=== PATIENT | female | born 1985 | race Caucasian/White ===

== ENCOUNTER 2023-09-07 11:07 | Emergency (ER) | payer SELFPAY ==
[2023-09-07 12:06] VITALS: BP 119/76; PULSE 70; RESP 16; TEMP 36; O2SAT 99; BMI 46.7
--- NOTE | 2023-09-07 12:09 | ED.UPPEXIN ---
HPI - Extremity Injury (Upper) General Chief Complaint: Extremity Injury, Upper Stated Complaint: l shoulder pain Time Seen by Provider: 09/07/23 12:56 Source: patient Mode of arrival: ambulatory Limitations: no limitations History of Present Illness HPI narrative: Patient is a 38 year old assigned female at with no reported medical history presenting to the emergency department today with left shoulder pain. Patient states that 2 months ago she was changing the light bulb above her bed when she planted her hand against the ceiling and fell forward, feeling a pop in her left shoulder. Patient denies any dizziness, lightheadedness, abdominal pain, nausea, vomiting, fever, chills, blurry vision, double vision, loss of vision, chest pain, difficulty breathing, shortness of breath, back pain, night sweats, pain with urination, increased urinary frequency, increased urinary urgency, blood in her urine or stool, syncope or a near syncopal episode, bowel incontinence, bladder incontinence, bowel retention, bladder retention, or any other complaints at this time. MD complaint: injury to: left and shoulder Onset (ago): month(s) (2) Other injuries: none Place: home Severity: mild Severity scale (1-10): 3 Associated symptoms: denies other symptoms Related Data Previous Rx's Medication Instructions Recorded prednisone 20 mg tablet 20 mg PO DAILY 7 days #7 tabs 09/07/23 Allergies Allergy/AdvReac Type Severity Reaction Status Date / Time Penicillin Allergy Unknown shortness Uncoded 09/07/23 12:06 of breath Tramadol Allergy Unknown nausea and Uncoded 09/07/23 12:06 vomiting Review of Systems Constitutional: Constitutional: Reports no additional constitutional complaints, Denies chills, Denies fever(s) and Denies night sweats Eyes: Eyes: Reports no additional eye complaints, Denies blurry vision, Denies change in vision, Denies diplopia, Denies eye discharge, Denies loss of vision and Denies eye pain ENT: Denies dizziness Cardiovascular: Cardiovascular: Reports no additional cardiovascular complaints, Denies chest pain, Denies lightheadedness, Denies Loss of Consciousness and Denies dyspnea Respiratory: Respiratory: Reports no additional respiratory complaints and Denies dyspnea Gastrointestinal: Gastrointestinal: Reports no additional gastrointestinal complaints, Denies abdominal pain, Denies melena, Denies hematochezia, Denies change in bowel habits and Denies change in stool character Genitourinary: Genitourinary: Denies hematuria, Denies urinary frequency, Denies dysuria, Denies urinary incontinence, Denies urinary hesitancy and Denies urinary urgency Musculoskeletal: Musculoskeletal: Reports no additional musculoskeletal complaints, Denies numbness and Denies tingling Comments: left shoulder pain Neurologic: Denies dizziness, Denies loss of vision, Denies numbness and Denies tingling Psychiatric: Psychiatric: Reports no additional psychiatric complaints Endocrine: Endocrine: Reports no additional endocrine complaints Hematologic/Lymphatic: Hematologic/Lymphatic: Reports no additional hematologic/lymphatic complaints Allergic/Immunologic: Allergic/Immunologic: Reports no additional allergic/immunologic complaints PMFSH Past Medical History Attestation statement: The following information was validated with the patient. Source: old records reviewed and nursing notes reviewed Onset Date is defined in the Problem List Problems that require an onset date and time if occurred within 24 hrs of arrival to the ED Aortic Dissection and Rupture; Neurologic impairment; Cardiopulmonary Arrest; Endotracheal Intubation; Insertion or Replacement of Mechanical Circulatory Assist Device Social History Social History Advance Directives: No Advance Directives Information Provided: Yes Physical Exam Vital Signs: Vital Signs: Last Vital Signs Temp 96.8 F 09/07/23 12:06 Pulse 70 09/07/23 12:06 Resp 16 09/07/23 12:06 BP 119/76 09/07/23 12:06 Pulse Ox 99 09/07/23 12:06 O2 Del Method Room Air 09/07/23 12:06 BMI result Body Mass Index 46.7 Const: General: cooperative, no acute distress, alert and awake Nutritional Appearance: well nourished Orientation/consciousness: patient oriented x3 Limitations: no limitations HEENT: Head: Yes normal to inspection and Yes atraumatic Ears: hearing grossly normal bilaterally and external ears normal General nose exam: Normal external nose present, no nasal discharge noted and no epistaxis Face and sinus: Yes normal facial exam, No abrasion and No laceration Mouth: Normal oral and palatal mucosa present, no drooling and no muffled voice Eyes: General: appearance normal, both eyes and all related structures Periorbital: periorbital findings normal Eyelids: Yes eyelids normal Conjunctivae: conjunctivae normal Pupils: Equal, round and reactive pupils present EOM: EOMs intact bilaterally Neck: Neck: Yes normal visual inspection, Yes full ROM and Yes no lymphadenopathy Chest: Chest palpation & inspection: normal inspection of the chest Resp: Effort & Inspection: normal respiratory effort and able to speak in complete sentences GI: Inspection: Yes normal to inspection Neuro: General: patient oriented x3 and moves all extremities Cranial nerves: Yes Equal, round and reactive pupils present Cognition (Neuro): normal cognition Motor exam (neuro): 5/5 motor strength present throughout Sensory Exam: Normal double simultaneous stimulation for sensation Coordination: [id number] test normal Extrem: Other: pain with left shoulder ROM General: Yes normal to inspection and Yes capillary refill normal Psych: Appearance: grossly normal Mental Status: mental status grossly normal Affect: normal affect Attitude: cooperative Thought process: Normal thought process present Thought content: Normal thought content present Insight: Good insight present (Psych) Course Course Course Narrative: This is a rapid medical exam. Deferred additional HPI, ROS, PE to primary provider. 38 yo female with no known medical history, right hand dominant here with left shoulder pain after an injury which occurred in July Went to and diagnosed with muscle strain, but reports continued symptoms. Has not had imaging to this point. Will check x-rays VSS Medical Decision Making Medical Decision Making MDM Narrative: Patient is a 38 year old assigned female at with no reported medical history presenting to the emergency department today with left shoulder pain. Patient's physical exam showed decreased left ROM. Patient's left shoulder x-ray showed no acute process. I explained my physical exam findings as well as all test results to the patient. I answered all questions asked by the patient. I stressed the importance of the patient taking her medication as prescribed. I stressed the importance of the patient following up with her primary care provider. I stressed the importance of the patient returning to the emergency department immediately if her symptoms were to worsen or if she were to develop any dizziness, shortness of breath, difficulty breathing, chest pain, blurry vision, loss of vision, nausea, vomiting, abdominal pain, fever, chills, back pain, or any other complaints. Patient verbalized agreement and understanding with this treatment plan and discharge. Differential Diagnosis Differential Diagnoses: The differential diagnosis associated with the presentation includes Left rotator cuff injury Left shoulder pain Admission/Observation Consideration of admission/observation: Escalation of care including admission/observation considered Patient would have been admitted to the hospital had her work up had any findings where hospital admission was appropriate and her clinical presentation warranted hospital admission. Independent Interpretation I performed an independent interpretation of an: Plain X-Ray Interpretation: My interpretation is in agreement with the radiologist's impression of this imaging study. EXAMINATION: XR SHOULDER, LEFT CLINICAL INFORMATION: Injury, pain COMPARISON: None available. TECHNIQUE: AP external rotation, Grashey, scapular Y, and axillary views of the left shoulder. FINDINGS: The bones and soft tissues are normal. No fracture. Glenohumeral and acromioclavicular alignment is anatomic with normal joint space. No abnormal soft tissue calcifications. XR/XR shoulder LT min 2V IMPRESSION: Normal left shoulder. Dictated By: Lane Mccord MD Signed By: Electronically signed by Lane Mccord MD 09/07/23 1250 Radiology Impression Discussion of test interpretation with radiology: I have reviewed the radiologist's reading. Discharge Plan Discharge Clinical Impression: Acute shoulder pain Patient Disposition: Home, Self-Care Instructions: Shoulder Pain (ED) Additional Instructions: Follow up with your primary care provider and an orthopedic provider. After your move, be sure to request all records / imaging to establish with a new orthopedic and primary care provider. Return to the emergency department immediately if your symptoms worsen or if you develop any dizziness, shortness of breath, difficulty breathing, chest pain, blurry vision, loss of vision, nausea, vomiting, abdominal pain, fever, chills, back pain, or any other complaints. Prescriptions: New prednisone 20 mg tablet 20 mg PO DAILY 7 Days Qty: 7 0RF Referrals: [facility] [place] Family [facility] [Provider Group] (Call to establish and follow up with a primary care provider. If you already have a primary care provider, please follow up with them.) [facility] [place] [facility] [Provider Group] (Call to establish and follow up with a primary care provider. If you already have a primary care provider, please follow up with them.) [facility] [place] [facility] [Provider Group] (Call to establish and follow up with a primary care provider. If you already have a primary care provider, please follow up with them.) [facility] [Provider Group] (Call to establish and follow up with an orthopedic provider.) Interventions: ED Discharge Assessment Last Done: 09/07/23 13:47 Discharge Date/Time: 09/07/23 13:48 Print Language: Frisian
== END 2023-09-07 13:48 | disposition home or self-care (01) ==
PROVIDERS: Emergency Provider Student in an Organized Health Care Education/Training Program
DX: M25.512 Pain in left shoulder (principal)
CPT/HCPCS: 73030; 99283

== ENCOUNTER 2024-06-30 16:09 | Emergency (ER) | payer OTHER, SELFPAY ==
--- NOTE | ~2024-06-30 | CT_ITS ---
EXAMINATION: CT MAXILLOFACIAL WITHOUT CONTRAST CLINICAL INFORMATION: Left-sided facial swelling. Dental infection. Abscess. COMPARISON: None available. TECHNIQUE: Multidetector helical imaging of the maxillofacial bones was performed in the axial plane following the administration of 85 mL of Omnipaque 350 intravenous contrast. Generation of coronal and sagittal reformatted images. This CT examination was performed using dose optimization techniques as appropriate, variously including the following: *Automated exposure control *Adjustment of mA and/or kV according to patient size (this includes techniques or standardized protocols for targeted exams where dose is matched to indication/reason for exam; i.e. extremities or head) *Use of iterative reconstruction technique DLP: 486 mGy-cm FINDINGS: FRONTAL SINUSES AND DRAINAGE PATHWAYS: Minimal mucosal thickening of the frontal sinuses. The frontoethmoidal recesses are patent. MAXILLARY SINUSES AND DRAINAGE PATHWAYS: Minimal mucosal thickening of the maxillary sinuses. The maxillary ostia and infundibula are patent. ETHMOID SINUSES: Minimal mucosal thickening of the ethmoid air cells. The ethmoid roofs appear symmetric and intact. SPHENOID SINUS AND DRAINAGE PATHWAYS: The sphenoid sinus is clear. The sphenoethmoidal recesses are patent. The carotid canals are normally covered by bone. NASAL PASSAGE: Mild mucosal thickening of the nasal passages. Dehiscence of the cartilaginous nasal septum. ORBITS: Normal appearance of the osseous orbits. The lamina papyracea are intact. No significant preseptal or retrobulbar edema. Normal appearance of the globes. Normal symmetric appearance of the extraocular musculature. No abnormalities of the intraconal or extraconal adipose tissue. Normal appearance of the optic nerve sheaths. Normal appearance of the lacrimal glands. No orbital fluid collections. No abnormalities of the orbital apices. TEMPOROMANDIBULAR JOINTS: The temporomandibular joints remain well aligned. Normal appearance of the temporomandibular joints. ADDITIONAL RELEVANT FINDINGS: No evidence of maxillofacial bone fractures. The zygomatic arches remain intact. No nasal bone fracture. No evidence of mandibular or maxillary fracture. Multifocal odontogenic enamel erosions and periapical lucencies. There is a fluid collection within the left cheek that extends from the region of the mandibular left-sided molar along the outer table of the left mandibular ramus, measuring approximately 2.5 x 0.5 x 2.7 cm. Moderate fat stranding throughout the left side of face. Moderately prominent left greater than right level Ib lymph nodes, measuring up to 1.6 cm. Left level IIa lymph nodes measure up to 1.7 cm. The premaxillary, retromaxillary, pterygopalatine fossa, temporal fossa, and parapharyngeal adipose tissue is maintained. No demonstrated soft tissue abnormalities within the intrinsic tissues of the tongue.. No demonstrated additional soft tissue collection. The visualized mastoid air cells and middle ear cavities remain well aerated. Limited evaluation of the intracranial structures without significant abnormalities. CT/CT facial bones w IV con IMPRESSION: 1. Multifocal odontogenic disease. There is a 2.5 x 0.5 x 2.7 cm fluid collection suggestive of abscess formation within the left cheek that extends from the region of the mandibular left-sided molar along the outer table of the left mandibular ramus. Moderate fat stranding throughout the left side of face. 2. Moderately prominent left greater than right upper cervical chain lymphadenopathy, likely reactive in nature. 3. Dehiscence of the cartilaginous nasal septum. Electronically signed by: Pedro Colin DO 06/30/2024 10:29 PM EDT
[2024-06-30 16:11] VITALS: BP 117/70; PULSE 94; RESP 19; TEMP 36.6; O2SAT 98; BMI 48.2
--- NOTE | 2024-06-30 16:11 | ED_ITS ---
HPI - Dental/Oral General Chief complaint: Dental/Oral Stated complaint: Tooth infection Time Seen by Provider: 06/30/24 18:12 History of Present Illness ED Provider: Donna HAMMER Narrative: The patient is a 38-year-old female who says that she broke a tooth on her left mandible last Saturday, 6 days ago. Two days later she started to develop dental pain on the left jaw and she took a lot of acetaminophen on Saturday and then Saturday. On Saturday morning she went to an urgent care center and was prescribed clindamycin 300 mg 4 times a day. She has been taking the clindamycin since then but feels that the jaws getting worse. Today she went to see a dentist who referred to the emergency room because of the worsening swelling. She has been unable to fully open her mouth today. No shortness of breath. No difficulty swallowing. No definite fevers. Related Data Previous Rx's ?Medication ?Instructions ?Recorded prednisone 20 mg tablet 20 mg PO DAILY 7 days #7 tabs 09/07/23 cefpodoxime 200 mg tablet 400 mg (2 x 200 mg) PO BID #14 tabs 06/30/24 metronidazole 500 mg tablet 500 mg PO TID #21 tabs 06/30/24 Allergies Allergy/AdvReac Type Severity Reaction Status Date / Time Penicillin Allergy Unknown shortness Uncoded 06/30/24 16:13 of breath Tramadol Allergy Unknown nausea and Uncoded 06/30/24 16:13 vomiting Review of Systems 2 Review of Systems: Yes all other systems are reviewed and are negative PMFSH Social History Social History Smoked in Last 30 Days: Yes Use of substances other than those prescribed or required for medical reasons: Yes Substance Use Type: Marijuana Advance Directives: No Advance Directives Information Provided: No Do you have a plan to hurt others: No Plan Physical Exam 2 Vital Signs: Vital Signs: Last Vital Signs Temp 98.7 F 06/30/24 23:22 Pulse 91 06/30/24 23:22 Resp 16 06/30/24 23:22 BP 139/68 06/30/24 23:22 Pulse Ox 98 06/30/24 23:22 O2 Del Method Room Air 06/30/24 23:22 BMI result Body Mass Index 48.2 Const: Other: The patient is awake and alert. She is pleasant and cooperative. She has some obvious swelling to the left side of her face. She does not seem overtly toxic. HEENT: Other: The patient has some trismus that limits the degree to which she can open her mouth. With these limits I am able to visualize her posterior pharynx that looks unremarkable. I do not see any posterior pharyngeal swelling or asymmetry. There does seem to be some injection of the left buccal mucosa. The patient has generalized swelling and tenderness around the angle of the left jaw. No right-sided swelling. Eyes: General: appearance normal, both eyes and all related structures Neck: Other: The patient is moving her neck easily. No stridor. No gross neck swelling. Resp: Effort & Inspection: normal respiratory effort Auscultation: clear to auscultation bilaterally Cardio: Rate: regular rate Rhythm: regular rhythm Heart sounds: S1 normal heart sound present and S2 normal heart sound present GI: Other: Abdomen is soft and nontender Skin: Other: Skin is dry and unremarkable. No erythema over the skin of the face. Neuro: Other: The patient is awake and alert with a normal mental status. Cranial nerves are grossly intact although she has some trismus. She moves her extremities normally. Extrem: Other: No peripheral edema Course Course Course Narrative: This is a Rapid Medical Exam performed in triage by Cheyanne Ohara PA-C. Full HPI, ROS and PE to be performed by primary ED provider. 38 yo F presenting to the ED c/o left lower dental pain and infection x4-5 days. Admits broke tooth & went to was started on Clindamycin w/o relief, then saw her dentist today and was sent to the ED for IV abx. PE: + left-sided facial swelling appreciated. Left lower dental/intraoral tenderness. Difficult to examine in triage. + trismus. Plan: Labs, lactic/blood cultures, CT Medications Administered Discontinued Medications Generic Name Dose Route Start Last Admin Trade Name Joshuaq PRN Reason Stop Dose Admin Ceftriaxone Sodium 2 gm 06/30/24 18:35 06/30/24 18:51 Ceftriaxone Sodium 2 Gm Vial IVPUSH 06/30/24 18:36 2 gm ONCE ONE Administration Droperidol 0.625 mg 06/30/24 18:24 06/30/24 18:33 Droperidol 5 Mg/2 Ml Vial IVPUSH 06/30/24 18:25 0.625 mg ONCE ONE Administration Droperidol 0.625 mg 06/30/24 22:17 06/30/24 22:28 Droperidol 5 Mg/2 Ml Vial IVPUSH 06/30/24 22:18 0.625 mg ONCE ONE Administration Metronidazole 500 mg in 100 mls @ 100 mls/hr 06/30/24 18:37 06/30/24 19:55 Flagyl IV 06/30/24 19:36 Infused ONCE ONE Infusion Acetylcysteine 15,000 mg/ 275 mls @ 200 mls/hr 06/30/24 18:53 06/30/24 21:25 Dextrose IV 06/30/24 20:21 Infused ONCE ONE Infusion Acetylcysteine 5,000 mg/ 525 mls @ 125 mls/hr 06/30/24 21:00 06/30/24 21:39 Dextrose IV 07/01/24 01:11 Not Given ONCE ONE Iohexol 85 ml 06/30/24 18:33 06/30/24 18:34 Iohexol 350 Mg/Ml 100 Ml Infus..Btl IV 06/30/24 18:34 85 ml ONCE ONE Administration Ketorolac Tromethamine 10 mg 06/30/24 20:06 06/30/24 20:28 Ketorolac Tromethamine 15 Mg/Ml Vial IVPUSH 06/30/24 20:07 10 mg ONCE ONE Administration Lidocaine/Epinephrine 10 ml 06/30/24 22:47 06/30/24 23:21 Lidocaine Hcl 1%/Epi 1:100,000 10 Ml Vial INFILTRATI 06/30/24 22:48 10 ml ONCE ONE Administration Metronidazole 500 mg 06/30/24 23:08 06/30/24 23:17 Metronidazole 500 Mg Tablet PO 06/30/24 23:09 500 mg ONCE ONE Administration Morphine Sulfate 4 mg 06/30/24 18:24 06/30/24 18:33 Morphine Sulfate 4 Mg/Ml Cartridge IVPUSH 06/30/24 18:25 4 mg ONCE ONE Administration Protocol Morphine Sulfate 4 mg 06/30/24 20:06 06/30/24 20:29 Morphine Sulfate 4 Mg/Ml Cartridge IVPUSH 06/30/24 20:07 4 mg ONCE ONE Administration Protocol Medical Decision Making Medical Decision Making MDM Narrative: The patient is a 38-year-old female who presents with a left-sided dental infection. She had significant left-sided facial swelling and trismus. She has been on clindamycin. She has a penicillin allergy. Since she seems to have been getting worse while on clindamycin she was given 2 g of IV ceftriaxone and 500 mg of IV metronidazole. A CT of the face was done that shows an abscess adjacent to the left mandible. Once the CT results were available I explained to the patient that I thought it would be reasonable for me to attempt a drainage procedure for the abscess. The patient consented to my trying this. I was able to palpate an area that I thought was fluctuant in the mucosa just on the buccal side of tooth 19. I first applied some topical dental anesthetic gel. I then used a 30 gauge needle to inject 1% lidocaine with epinephrine. I then passed an 18 gauge needle into the area of fluctuance and easily aspirated 3 mL of pus. Then made a small incision with a 11. Blade in the same area where I had aspirated with the 18 gauge needle. This allowed drainage of pus. The patient felt considerably better following this procedure and she had some slight improvement in her trismus. At that point I felt that she was likely well enough to be discharged and follow up with her dentist. I will change her antibiotic to cefpodoxime 400 mg b.i.d. and metronidazole 500 mg t.i.d.. She should contact her dentist in the morning. Lab Data 06/30/24 16:31 06/30/24 16:31 Labs: Lab Results 06/30/24 06/30/24 06/30/24 Range/Units 16:30 16:31 19:36 WBC 13.0 H (4.8-10.8) X10*3/uL RBC 4.28 (4.20-5.50) X10*6/uL Hgb 13.3 (12.0-16.0) g/dl Hct 38.7 (37.0-47.0) % MCV 90.4 (80.0-98.0) fL MCH 31.1 (27.0-33.0) pg MCHC 34.4 (31.0-35.0) g/dl RDW 13.4 (11.0-16.0) % Plt Count 281 (160-400) X10*3/uL MPV 9.4 (9.4-12.3) fL Immature Gran % (Auto) 0.3 (0.0-0.4) % Neut % (Auto) 66.1 (45-73) % Lymph % (Auto) 23.0 (20-40) % Stanly % (Auto) 8.2 (2-11) % Eos % (Auto) 1.8 (0-4) % Baso % (Auto) 0.6 (0-2) % Lymph # (Auto) 3.0 (1.2-4.9) X10*3/uL Stanly # (Auto) 1.1 (0.1-1.2) X10*3/uL Eos # (Auto) 0.2 (0.0-0.4) X10*3/uL Baso # (Auto) 0.1 (0.0-0.2) X10*3/uL Abs Immat Gran (auto) 0.04 H (0.00-0.03) X10*3/uL Absolute Neuts (auto) 8.6 H (2.0-8.3) x10*3/uL Absolute Nucleated RBC 0.000 (0.0-0.012) X10*3/uL Nucleated RBC % (auto) 0.0 (0.0-0.2) /100WBC ESR 26 H (0-20) MM/HR PT 14.0 H (10.9-12.4) SEC INR 1.2 H (0.9-1.1) Sodium 139 (135-145) mmol/L Potassium 3.6 (3.3-5.1) mmol/L Chloride 106 (96-108) mmol/L Carbon Dioxide 24 (22-29) mmol/L Anion Gap 13 (12-20) BUN 12 (9-16) mg/dL Creatinine 0.70 (0.5-1.4) mg/dL Estim Creat Clear Calc 147.0 Estimated GFR > 60 Random Glucose 94 (60-115) mg/dL Lactic Acid 1.3 (0.5-2.0) mmol/L Calcium 8.9 (8.4-10.2) mg/dL Total Bilirubin 0.8 0.6 (0.0-1.0) mg/dL Direct Bilirubin 0.4 0.3 (0.0-0.5) mg/dL AST 565 H 525 H (5-31) U/L ALT 1282 H 1212 H (0-31) U/L Alkaline Phosphatase 53 54 (39-117) U/L C-Reactive Protein 8.69 H (< or = 0.50) mg/dL Total Protein 7.2 6.3 L (6.5-8.0) g/dL Albumin 3.7 3.3 L (3.5-5.0) g/dL Beta HCG, Quant < 2 mIU/mL Salicylates < 5.0 L (15-30) mg/dL Acetaminophen < 3 (<30) mcg/mL Procedures Abscess I/D Site: oral ( Dental abscess in the gingiva/mucosa on the buccal side of tooth 19.) Side (if applicable): left Local Anesthetic: lidocaine 1% and with epi Amount of anesthesia used (mL): 2 Technique: needle aspiration and incised with blade Amount of fluid expressed (mL): 3 Sent for culture/gram staining?: No Irrigation: No Packing used?: none Discharge Plan Discharge Clinical Impression: Dental abscess Patient Disposition: Home, Self-Care Instructions: Dental Abscess (ED) Additional Instructions: Your CT scan showed that you had an abscess on the left side of your face. The abscess has been incised and seems to be draining reasonably well. Since you seemed to get worse on the clindamycin I am recommending that we change your antibiotic regimen. 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 Please take the cefpodoxime 2 tablets 2 times a day as prescribed. Please take the metronidazole 1 tablet 3 times a day as prescribed. Use the chlorhexidine rinses as directed. Please contact your dentist tomorrow to set up an appointment later this week for re-evaluation. Return to the emergency room if significantly worse. Prescriptions: New cefpodoxime 200 mg tablet 400 mg PO BID Qty: 14 0RF Rx Instructions: must administer with a meal/food metronidazole 500 mg tablet 500 mg PO TID Qty: 21 0RF No Action prednisone 20 mg tablet 20 mg PO DAILY 7 Days Qty: 7 0RF Interventions: ED Discharge Assessment Last Done: 06/30/24 23:22 Discharge Date/Time: 06/30/24 23:24 Print Language: Luxembourger
[2024-06-30 16:37] LABS: MANUAL DIFF FLAG NO
[2024-06-30 16:41] LABS: Basophils Absolute Auto 0.1 X10*3/uL (0.0-0.2); Basophils Percent Auto 0.6 % (0-2); Eosinophils Absolute Auto 0.2 X10*3/uL (0.0-0.4); Eosinophils Percent Auto 1.8 % (0-4); Hematocrit 38.7 % (37.0-47.0); Hemoglobin 13.3 g/dl (12.0-16.0); Imm Gran Abs Auto 0.04 X10*3/uL (0.00-0.03); Imm Gran Pct Auto 0.3 % (0.0-0.4); Mean Corpuscular HGB Conc 34.4 g/dl (31.0-35.0); Mean Corpuscular Hemoglobin 31.1 pg (27.0-33.0); Mean Corpuscular Volume 90.4 fL (80.0-98.0); Mean Platelet Volume 9.4 fL (9.4-12.3); Monocytes Absolute Auto 1.1 X10*3/uL (0.1-1.2); Monocytes Percent Auto 8.2 % (2-11); Neutrophils Absolute Auto 8.6 x10*3/uL (2.0-8.3); Neutrophils Percent Auto 66.1 % (45-73); Platelet Count 281 X10*3/uL (160-400); Red Blood Count 4.28 X10*6/uL (4.20-5.50); Red Cell Distribution Width 13.4 % (11.0-16.0)
[2024-06-30 16:51] LABS: Lactic Acid 1.3 mmol/L (0.5-2.0)
[2024-06-30 16:59] LABS: Albumin Level 3.7 g/dL (3.5-5.0); Alkaline Phosphatase 53 U/L (39-117); Anion Gap 13 (12-20); Aspartate Amino Transferase 565 U/L (5-31); Bilirubin Direct 0.4 mg/dL (0.0-0.5); Bilirubin Total 0.8 mg/dL (0.0-1.0); Blood Urea Nitrogen 12 mg/dL (9-16); C Reactive Protein 8.69 mg/dL (< or = 0.50); Calcium 8.9 mg/dL (8.4-10.2); Carbon Dioxide 24 mmol/L (22-29); Chloride 106 mmol/L (96-108); Estimated Glomerular Filt Rate > 60; Glucose Random 94 mg/dL (60-115); Potassium 3.6 mmol/L (3.3-5.1); Sodium 139 mmol/L (135-145); Total Protein 7.2 g/dL (6.5-8.0)
[2024-06-30 17:09] LABS: Alanine Aminotransferase 1282 U/L (0-31)
[2024-06-30 17:40] LABS: Erythrocyte Sedimentation Rate 26 MM/HR (0-20); HCG Quantitative < 2 mIU/mL
[2024-06-30 18:00] VITALS: BP 123/46; PULSE 97; RESP 18; TEMP 37.1; O2SAT 98
--- NOTE | 2024-06-30 18:20 | PC.NURSE ---
Arrived from dentists office after failing po abt for tooth infection. Patient reports left lower tooth broke last wed and it has progressively gotten worse. Was seen at urgent care and was given abt that she has taken for 2 days. Reports po abt has not hekped at all and facial pain and swelling has gotten worse. Left side of face swollen, patient denies throat or tongue swelling. States can only tolerate soft food d/t swelling and pain.
[2024-06-30] MEDS: droPERidol 5 MG/2 ML VIAL 0.625 MG IVPUSH ×2 (18:33→22:28)
[2024-06-30] MEDS: Morphine Sulfate 4 MG/ML CARTRIDGE IVPUSH ×2 (18:33→20:29)
[2024-06-30] MEDS: iohexoL 350 MG/ML 100 ML INFUS..BTL 85 ML IV (18:34)
[2024-06-30] MEDS: cefTRIAXone sodium 2 GM VIAL IVPUSH (18:51)
[2024-06-30] MEDS: metroNIDAZOLE/NS 500 MG/100 ML PIGGYBACK 100 MG IV (18:56)
[2024-06-30 19:39] VITALS: BP 104/58; PULSE 87; RESP 16; TEMP 36.6; O2SAT 97
[2024-06-30 19:54] LABS: INTERNATIONAL NORM RATIO 1.2 (0.9-1.1)
[2024-06-30] MEDS: Acetylcysteine 15,000 MG in Dextrose 5 % 200 ML 200 MG IV (20:01)
[2024-06-30 20:13] LABS: Acetaminophen LAB < 3 mcg/mL (<30); Salicylate < 5.0 mg/dL (15-30)
[2024-06-30 20:28] LABS: Alanine Aminotransferase 1212 U/L (0-31); Albumin Level 3.3 g/dL (3.5-5.0); Alkaline Phosphatase 54 U/L (39-117); Aspartate Amino Transferase 525 U/L (5-31); Bilirubin Direct 0.3 mg/dL (0.0-0.5); Bilirubin Total 0.6 mg/dL (0.0-1.0); Total Protein 6.3 g/dL (6.5-8.0)
[2024-06-30] MEDS: Ketorolac Tromethamine 15 MG/ML VIAL 10 MG IVPUSH (20:28)
--- NOTE | 2024-06-30 21:18 | PC.NURSE ---
RN to bedside to educate pt on plan for 2 additional doses fo acetadote and the anticipated time frame of these administrations. The pt expressed her frustrations as she reports coming here for this while pointing at her face NOT this! . RN tried to educate the patient on the rational behind medication use and elevated LFTs however she replied I know what to look for, I'm fine . Pt does report improvement s/p medication administration. MD Henley to bedside to discuss with pt
--- NOTE | 2024-06-30 21:39 | PC.NURSE ---
RN to bedside to dc first acetadote dose and hang the second when the pt was found sitting upright in her stretcher holding an emesis bag with approximately 25-50mls of what appears to be bile. She again expressed frustration with the length of her visit, her concern for her dogs and how she is being treated for something other than what she came for. The pt states that since she is unsure as to what prompted or triggered her nausea (between the morphine or the acetadote) that she declined to receive the second dose of acetadote stating I'm done with everything , further explaining she no longer wants to receive the acetadote while waiting for her CT results
[2024-06-30 23:12] VITALS: BP 139/68; PULSE 91; RESP 16; TEMP 37.1; O2SAT 98
[2024-06-30] MEDS: metroNIDAZOLE 500 MG TABLET PO (23:17)
[2024-06-30] MEDS: Lidocaine HCl 1%/Epi 1:100,000 10 ML VIAL INFILTRATI (23:21)
[2024-06-30 23:22] VITALS: BP 139/68; PULSE 91; RESP 16; TEMP 37.1; O2SAT 98
== END 2024-06-30 23:24 | disposition home or self-care (01) ==
PROVIDERS: Physician Assistant; Emergency Provider Emergency Medicine
DX: K04.7 Periapical abscess without sinus (principal); R68.84 Jaw pain; Z79.899 Other long term (current) drug therapy
CPT/HCPCS: 36415; 41800; 70487; 80048; 80076; 80143; 80179; 83605; 84702; 85025; 85610; 85652; 86140; 87040; 96365; 96367; 96375; 96376; 99284; J0132; J0696; J1790; J1836; J1885; J2004; J2270; Q9967

== ENCOUNTER 2025-01-10 21:13 | Emergency (ER) | payer OTHER, SELFPAY ==
[2025-01-10 21:20] VITALS: BP 117/81; PULSE 78; RESP 18; TEMP 36.3; O2SAT 99; BMI 50.3
[2025-01-10 21:44] LABS: MANUAL DIFF FLAG NO
[2025-01-10 21:45] LABS: Basophils Absolute Auto 0.1 X10*3/uL (0.0-0.2); Basophils Percent Auto 0.7 % (0-2); Eosinophils Absolute Auto 0.1 X10*3/uL (0.0-0.4); Eosinophils Percent Auto 0.7 % (0-4); Hematocrit 40.6 % (37.0-47.0); Hemoglobin 13.9 g/dl (12.0-16.0); Imm Gran Abs Auto 0.03 X10*3/uL (0.00-0.03); Imm Gran Pct Auto 0.3 % (0.0-0.4); Lymphocytes Absolute Auto 3.3 X10*3/uL (1.2-4.9); Mean Corpuscular HGB Conc 34.2 g/dl (31.0-35.0); Mean Corpuscular Hemoglobin 31.4 pg (27.0-33.0); Mean Corpuscular Volume 91.9 fL (80.0-98.0); Mean Platelet Volume 9.4 fL (9.4-12.3); Monocytes Absolute Auto 0.7 X10*3/uL (0.1-1.2); Neutrophils Absolute Auto 6.4 x10*3/uL (2.0-8.3); Neutrophils Percent Auto 60.3 % (45-73); Platelet Count 297 X10*3/uL (160-400); Red Blood Count 4.42 X10*6/uL (4.20-5.50); Red Cell Distribution Width 13.3 % (11.0-16.0); White Blood Count 10.6 X10*3/uL (4.8-10.8)
[2025-01-10 22:04] LABS: Alanine Aminotransferase 24 U/L (0-31); Albumin Level 4.1 g/dL (3.5-5.0); Alkaline Phosphatase 52 U/L (39-117); Anion Gap 14 (12-20); Aspartate Amino Transferase 23 U/L (5-31); Bilirubin Total 0.5 mg/dL (0.0-1.0); Blood Urea Nitrogen 6 mg/dL (9-16); Calcium 9.3 mg/dL (8.4-10.2); Carbon Dioxide 25 mmol/L (22-29); Chloride 106 mmol/L (96-108); Creatinine Clr Calc Pharmacy 149.3; Estimated Glomerular Filt Rate > 60; Glucose Random 90 mg/dL (60-115); Potassium 4.1 mmol/L (3.3-5.1); Sodium 141 mmol/L (135-145); Total Protein 7.6 g/dL (6.5-8.0)
[2025-01-10 22:05] LABS: HCG Quantitative < 2 mIU/mL
--- NOTE | 2025-01-11 00:11 | ED.GENADULT ---
HPI - General Adult General Chief complaint: Vaginal Bleeding Stated complaint: lots of bleed in vagina area from removal oftampon Time Seen by Provider: 01/10/25 23:38 Source: patient Limitations: no limitations History of Present Illness ED Provider: Desiree Nuñez PA-C HPI narrative: 39-year-old female with a history of morbid obesity presents with a regular vaginal bleeding. States she has use the Mirena for several years, over the past few months she has been experiencing irregular vaginal bleeding. Patient states over the past 3 days the bleeding has increased in severity. Her typical cycle last 4-5 days, however her current menstrual cycle is going on day 7. Patient states she is having to use super absorbent tampons, soaking through a tampon per hour. Patient states the bleeding has somewhat subsided today. Patient is concerned given the Mirena fell out, and she has been passing large clots. Patient also is concerned she may be . Related Data Previous Rx's ?Medication ?Instructions ?Recorded prednisone 20 mg tablet 20 mg PO DAILY 7 days #7 tabs 09/07/23 cefpodoxime 200 mg tablet 400 mg (2 x 200 mg) PO BID #14 tabs 06/30/24 metronidazole 500 mg tablet 500 mg PO TID #21 tabs 06/30/24 Allergies Allergy/AdvReac Type Severity Reaction Status Date / Time Penicillin Allergy Unknown shortness Uncoded 01/10/25 21:25 of breath Tramadol Allergy Unknown nausea and Uncoded 01/10/25 21:25 vomiting Review of Systems Review of Systems: Yes all other systems are reviewed and are negative Constitutional: Constitutional: Denies fatigue and Denies fever(s) Cardiovascular: Cardiovascular: Denies chest pain and Denies dyspnea Respiratory: Respiratory: Denies dyspnea Gastrointestinal: Gastrointestinal: Denies abdominal pain, Denies nausea and Denies vomiting Genitourinary: Genitourinary: Denies pelvic pain, Denies vaginal discharge and Reports other (vaginal bleeding) Endocrine: Endocrine: Denies fatigue PMFSH Past Medical History Attestation statement: The following information was validated with the patient. Social History Social History Smoked in Last 30 Days: No Use of substances other than those prescribed or required for medical reasons: No Substance Use Type: Marijuana Advance Directives: No Advance Directives Information Provided: No Do you have a plan to hurt others: No Plan Patient : No Physical Exam ED Vital Signs: Vital Signs - 24 hr 01/10/25 21:20 Temperature 97.4 F Pulse Rate 78 Respiratory Rate 18 Blood Pressure 117/81 Pulse Oximetry 99 Oxygen Delivery Method Room Air BMI result Body Mass Index 50.3 Const Other: Alert Orientation/consciousness: patient oriented x3 Resp Effort & Inspection: normal respiratory effort Cardio Other: Normal peripheral perfusion GI Other: Soft, nondistended nontender no guarding Other: No active bleeding per us, small clot visualized within vaginal canal, no CMT no adnexal tenderness no Mirena Skin Other: Warm dry no rash Neuro General: patient oriented x3, gait normal, no focal motor deficits and CN's II-XI intact bilaterally Psych Other: Cooperative Medical Decision Making Medical Decision Making [facility] Narrative: 39-year-old female with a history of morbid obesity presents with a regular vaginal bleeding. States she has use the Mirena for several years, over the past few months she has been experiencing irregular vaginal bleeding. Patient states over the past 3 days the bleeding has increased in severity. Her typical cycle last 4-5 days, however her current menstrual cycle is going on day 7. Patient states she is having to use super absorbent tampons, soaking through a tampon per hour. Patient states the bleeding has somewhat subsided today. Patient is concerned given the Mirena fell out, and she has been passing large clots. Patient also is concerned she may be . Problem: Use the Mirena, morbid obesity History: Per patient I have considered the following differential diagnoses: Dysfunctional uterine bleeding, side-effect from her Mirena, ectopic, Mirena migration into uterine wall Plan: Screening labs including tests ordered from triage, the patient is not , this is not ectopic. Her dysfunctional uterine bleeding is likely secondary to side-effect profile from her Mirena. Her H&H are stable, I repeated her blood count, it is unchanged, she is no longer heavily bleeding, nothing emergently to do. 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 I have independently reviewed the following tests: Labs: No leukocytosis, not anemic, no electrolyte abnormality, not Lab Data 01/11/25 01:12 01/10/25 21:39 Labs: Lab Results 01/10/25 01/11/25 Range/Units 21:39 01:12 WBC 10.6 (4.8-10.8) X10*3/uL RBC 4.42 (4.20-5.50) X10*6/uL Hgb 13.9 13.8 (12.0-16.0) g/dl Hct 40.6 39.9 (37.0-47.0) % MCV 91.9 (80.0-98.0) fL MCH 31.4 (27.0-33.0) pg MCHC 34.2 (31.0-35.0) g/dl RDW 13.3 (11.0-16.0) % Plt Count 297 (160-400) X10*3/uL MPV 9.4 (9.4-12.3) fL Immature Gran % (Auto) 0.3 (0.0-0.4) % Neut % (Auto) 60.3 (45-73) % Lymph % (Auto) 31.0 (20-40) % [place] % (Auto) 7.0 (2-11) % Eos % (Auto) 0.7 (0-4) % Baso % (Auto) 0.7 (0-2) % Lymph # (Auto) 3.3 (1.2-4.9) X10*3/uL [place] # (Auto) 0.7 (0.1-1.2) X10*3/uL Eos # (Auto) 0.1 (0.0-0.4) X10*3/uL Baso # (Auto) 0.1 (0.0-0.2) X10*3/uL Abs Immat Gran (auto) 0.03 (0.00-0.03) X10*3/uL Absolute Neuts (auto) 6.4 (2.0-8.3) x10*3/uL Absolute Nucleated RBC 0.000 (0.0-0.012) X10*3/uL Nucleated RBC % (auto) 0.0 (0.0-0.2) /100WBC Sodium 141 (135-145) mmol/L Potassium 4.1 (3.3-5.1) mmol/L Chloride 106 (96-108) mmol/L Carbon Dioxide 25 (22-29) mmol/L Anion Gap 14 (12-20) BUN 6 L (9-16) mg/dL Creatinine 0.70 (0.5-1.4) mg/dL Estim Creat Clear Calc 149.3 Estimated GFR > 60 Random Glucose 90 (60-115) mg/dL Calcium 9.3 (8.4-10.2) mg/dL Total Bilirubin 0.5 (0.0-1.0) mg/dL AST 23 (5-31) U/L ALT 24 (0-31) U/L Alkaline Phosphatase 52 (39-117) U/L Total Protein 7.6 (6.5-8.0) g/dL Albumin 4.1 (3.5-5.0) g/dL Beta HCG, Quant < 2 mIU/mL Discharge Plan Discharge Clinical Impression: Dysfunctional uterine bleeding Patient Disposition: Home, Self-Care Instructions: Abnormal (Dysfunctional) Uterine Bleeding (ED) Additional Instructions: The Mirena, can cause abnormal and heavy uterine bleeding. Women can also experience irregular menstrual cycles. In addition, some women experience mood instability. You may want to consider changing your method of control. All of your screening labs were normal including your blood counts, which we repeated, and they remained essentially the same. You were also not . Follow up with your flight reservations manager for discussion about other contraception methods. Prescriptions: No Action cefpodoxime 200 mg tablet 400 mg PO BID Qty: 14 0RF Rx Instructions: must administer with a meal/food metronidazole 500 mg tablet 500 mg PO TID Qty: 21 0RF prednisone 20 mg tablet 20 mg PO DAILY 7 Days Qty: 7 0RF Stand Alone Forms: Work/School Release Interventions: ED Discharge Assessment Last Done: 01/11/25 01:41 Discharge Date/Time: 01/11/25 01:42 Print Language: Kenyan
--- NOTE | 2025-01-11 00:31 | PC.NURSE ---
pt a&ox4, respirations even and unlabored. pt reports having very heavy period x3 days. reports today that she was in the bathroom and her iud fell out with a very large clot. reports she has been through 3 super plus tampons within 3 hours. this rn at bedside with lou de oliveira for rectal, pt tolerated well.
[2025-01-11 01:19] LABS: Hematocrit 39.9 % (37.0-47.0); Hemoglobin 13.8 g/dl (12.0-16.0)
[2025-01-11 01:41] VITALS: BP 117/81; PULSE 78; RESP 18; TEMP 36.3; O2SAT 99
--- NOTE | 2025-01-11 01:41 | PC.NURSE ---
Pt refused last st of vitals prior to discharge.
== END 2025-01-11 01:42 | disposition home or self-care (01) ==
PROVIDERS: Physician Assistant Medical; Emergency Provider Emergency Medicine Emergency Medical Services
DX: N93.9 Abnormal uterine and vaginal bleeding, unspecified (principal); N93.8 Other specified abnormal uterine and vaginal bleeding; R10.2 Pelvic and perineal pain
CPT/HCPCS: 36415; 80053; 84702; 85014; 85018; 85025; 99283; 99284